=== PATIENT | female | born 1990 | race Caucasian/White ===

== ENCOUNTER 2017-08-30 09:53 | Inpatient (IN) | payer MEDICAID ==
[2017-08-30 11:53] LABS: ADD MAN DIFF? NO
[2017-08-30 11:56] LABS: WHITE BLOOD COUNT 9.9 10^3/ul (4.8-10.8)
[2017-08-30 11:56] LABS: BASOPHILS % 0.3 % (0.0-2.0); EOSINOPHILS # 0.1 10^3/ul (0.0-0.5); EOSINOPHILS % 0.8 % (0.0-7.0); HEMATOCRIT 35.4 % (37.0-47.0); LYMPHOCYTES # 1.8 10^3/ul (0.8-2.9); LYMPHOCYTES % 17.7 % (15.0-51.0); MEAN CORPUSCULAR HEMOGLOBIN 29.9 pg (29.0-33.0); MEAN CORPUSCULAR HGB CONC 33.9 g/dl (32.0-37.0); MEAN CORPUSCULAR VOLUME 88.1 fl (82.0-101.0); MEAN PLATELET VOLUME 11.8 fl (7.4-10.4); MONOCYTE # 0.5 10^3/ul (0.3-0.9); MONOCYTES % 5.3 % (0.0-11.0); NEUTROPHIL # 7.4 10^3/ul (1.6-7.5); PLATELET COUNT 188 10^3/UL (140-415); RED BLOOD COUNT 4.02 10^6/ul (4.20-5.40); RED CELL DISTRIBUTION WIDTH 14.3 % (11.5-14.5)
[2017-08-30 12:00] LABS: ADD UMIC NO; UR ASCORBIC ACID NEGATIVE (NEGATIVE); UR BILIRUBIN (Dip) NEGATIVE (NEGATIVE); UR BLOOD (Dip) NEGATIVE (NEGATIVE); UR CLARITY CLEAR (CLEAR); UR COLOR YELLOW (YELLOW); UR GLUCOSE (Dip) NEGATIVE (NEGATIVE); UR KETONES (Dip) NEGATIVE (NEGATIVE); UR LEUKOCYTE ESTERASE (Dip) NEGATIVE Leu/ul (NEGATIVE); UR NITRITE (Dip) NEGATIVE (NEGATIVE); UR SPECIFIC GRAVITY (Dip) 1.005 (1.003-1.030); UR TOTAL PROTEIN (Dip) NEGATIVE (NEGATIVE); UR UROBILINOGEN (Dip) NEGATIVE (NEGATIVE)
[2017-08-30] MEDS ORDERED: OXYTOCIN 30 UNITS/LR 500 ML IV (12:00)
[2017-08-30] MEDS ORDERED: LIDOCAINE 1% (MPF) 30 ML INJ INJ (12:00)
[2017-08-30] MEDS ORDERED: BUTORPHANOL 2 MG INJ IV (12:00)
[2017-08-30] MEDS ORDERED: METHYLERGONOVINE 0.2 MG INJ IM (12:00)
[2017-08-30] MEDS ORDERED: IBUPROFEN 600 MG TAB PO (12:00)
[2017-08-30 12:19] LABS: URIC ACID 4.7 mg/dl (3.1-7.9)
[2017-08-30 12:21] LABS: INR 0.88; PARTIAL THROMBOPLASTIN TIME 28.3 Sec (25.0-35.0); PT RATIO 0.9
[2017-08-30] MEDS: LABETALOL 100 MG TAB PO (12:30)
[2017-08-30 12:43] LABS: ALANINE AMINOTRANSFERASE 23 IU/L (13-69); ALBUMIN 3.9 g/dl (3.3-4.9); ALBUMIN/GLOBULIN RATIO 1.34; ALKALINE PHOSPHATASE 165 IU/L (42-121); ANION GAP 16 (8-16); ASPARTATE AMINO TRANSFERASE 19 IU/L (15-46); BILIRUBIN,INDIRECT 0.1 mg/dl (0-1.1); BILIRUBIN,TOTAL 0.1 mg/dl (0.2-1.3); BLOOD UREA NITROGEN 6 mg/dl (7-20); CALCIUM 9.3 mg/dl (8.4-10.2); CARBON DIOXIDE 21 mmol/L (21-31); CHLORIDE 107 mmol/L (97-110); CREATININE 0.43 mg/dl (0.44-1.00); GLUCOSE 110 mg/dl (70-220); SODIUM 140 mmol/L (135-144); TOTAL PROTEIN 6.8 g/dl (6.1-8.1)
[2017-08-30] MEDS: DINOPROSTONE 10 MG VAG SUPP VAG (12:56)
[2017-08-30] MEDS: LACTATED RINGER'S 1,000 ML IV ×2 (13:26→18:53)
[2017-08-30 15:46] LABS: HEPATITIS B SURFACE ANTIGEN NEGATIVE (NEGATIVE)
[2017-08-30] MEDS ORDERED: LACTATED RINGER'S 1,000 ML IV (19:51)
[2017-08-30 20:10] LABS: RAPID PLASMA REAGIN NONREACTIVE (NR)
[2017-08-30] MEDS: LABETALOL 200 MG TAB PO (21:10)
[2017-08-31] MEDS: LACTATED RINGER'S 1,000 ML IV ×3 (03:14→20:58)
[2017-08-31] MEDS: LABETALOL 200 MG TAB PO ×2 (09:13→20:59)
[2017-08-31] MEDS: DINOPROSTONE 10 MG VAG SUPP VAG (17:27)
[2017-08-31] MEDS: OXYTOCIN 30 UNITS/LR 500 ML IV (19:32)
[2017-09-01] MEDS: LACTATED RINGER'S 1,000 ML IV ×3 (05:15→21:23)
[2017-09-01] MEDS: LABETALOL 200 MG TAB PO ×2 (08:54→21:51)
[2017-09-01] MEDS ORDERED: FENTAnyl 2MCG/ML-ROPIV 0.2% 100 ML (16:12)
[2017-09-01] MEDS: OXYTOCIN 30 UNITS/LR 500 ML IV (18:19)
[2017-09-02] MEDS ORDERED: FENTAnyl 2MCG/ML-ROPIV 0.2% 100 ML (00:59)
[2017-09-02] MEDS ORDERED: ACETAMINOPHEN 325 MG TAB PO (02:00)
[2017-09-02] MEDS: LACTATED RINGER'S 1,000 ML IV (02:39)
[2017-09-02] MEDS ORDERED: MINERAL OIL LIGHT 10 ML VIAL (05:00)
[2017-09-02] MEDS ORDERED: CEFAZOLIN 2 GM/50 ML (PMX) 50 ML IVPB (06:32)
[2017-09-02] MEDS: CEFAZOLIN 2 GM/50 ML (PMX) 50 ML IVPB (06:35)
[2017-09-02] MEDS ORDERED: CLINDAMYCIN 900 MG/D5W (PMX) 50 ML IVPB (06:46)
[2017-09-02] MEDS: CLINDAMYCIN 900 MG/D5W (PMX) 50 ML IVPB (06:50)
[2017-09-02 07:22] LABS: ADD MAN DIFF? NO
[2017-09-02 07:25] LABS: WHITE BLOOD COUNT 18.4 10^3/ul (4.8-10.8)
[2017-09-02 07:25] LABS: BASOPHIL # 0.1 10^3/ul (0.0-0.1); BASOPHILS % 0.3 % (0.0-2.0); EOSINOPHILS % 0.1 % (0.0-7.0); HEMATOCRIT 29.6 % (37.0-47.0); HEMOGLOBIN 10.1 g/dl (12.0-16.0); LYMPHOCYTES # 0.8 10^3/ul (0.8-2.9); LYMPHOCYTES % 4.2 % (15.0-51.0); MEAN CORPUSCULAR HEMOGLOBIN 30.4 pg (29.0-33.0); MEAN CORPUSCULAR HGB CONC 34.1 g/dl (32.0-37.0); MEAN CORPUSCULAR VOLUME 89.2 fl (82.0-101.0); MEAN PLATELET VOLUME 11.6 fl (7.4-10.4); MONOCYTE # 1.4 10^3/ul (0.3-0.9); MONOCYTES % 7.7 % (0.0-11.0); NEUTROPHIL # 16.1 10^3/ul (1.6-7.5); NEUTROPHILS % 87.2 % (39.0-77.0); PLATELET COUNT 172 10^3/UL (140-415); RED BLOOD COUNT 3.32 10^6/ul (4.20-5.40); RED CELL DISTRIBUTION WIDTH 14.2 % (11.5-14.5)
[2017-09-02] MEDS: OXYTOCIN 30 UNITS/LR 500 ML IV ×3 (07:45→14:33)
[2017-09-02] MEDS: CARBOPROST 250 MCG INJ IM (07:49)
[2017-09-02] MEDS: MISOPROSTOL 200 MCG TAB PR (07:52)
[2017-09-02] MEDS ORDERED: HYDROmorphONE 0.5 MG/0.5 ML SYG IV ×2 (08:30)
[2017-09-02] MEDS ORDERED: ONDANSETRON 4 MG INJ IV ×2 (08:30→13:00)
[2017-09-02] MEDS ORDERED: FENTAnyl 2MCG/ML-ROPIV 0.2% 100 ML BAG EPI (08:30)
[2017-09-02] MEDS ORDERED: DIPHENHYDRAMINE 50 MG INJ IV (08:30)
[2017-09-02] MEDS ORDERED: NALOXONE (0.4 MG/ML) INJ IV (08:30)
[2017-09-02] MEDS ORDERED: KETOROLAC 30 MG INJ IV (08:30)
[2017-09-02] MEDS: LABETALOL 200 MG TAB PO ×3 (09:00→21:30)
[2017-09-02] MEDS ORDERED: MISOPROSTOL 200 MCG TAB PR (13:00)
[2017-09-02] MEDS ORDERED: CARBOPROST 250 MCG INJ IM (13:00)
[2017-09-02] MEDS ORDERED: ZOLPIDEM 5 MG TAB PO (13:00)
[2017-09-02] MEDS ORDERED: HYDROCODONE/APAP (5/325) TAB PO (13:00)
[2017-09-02] MEDS ORDERED: OXYTOCIN 30 UNITS/LR 500 ML IV (13:00)
[2017-09-02] MEDS: IBUPROFEN 600 MG TAB PO ×3 (13:24→23:34)
[2017-09-02] MEDS: CEFAZOLIN 2 GM/50 ML (PMX) 50 ML IV ×2 (13:25→21:29)
[2017-09-02 14:26] LABS: ADD MAN DIFF? NO
[2017-09-02 14:29] LABS: ABNORMAL IP MESSAGE 1; BASOPHILS % 0.2 % (0.0-2.0); HEMATOCRIT 25.9 % (37.0-47.0); HEMOGLOBIN 8.8 g/dl (12.0-16.0); LYMPHOCYTES # 1.1 10^3/ul (0.8-2.9); LYMPHOCYTES % 6.3 % (15.0-51.0); MEAN CORPUSCULAR HEMOGLOBIN 30.1 pg (29.0-33.0); MEAN CORPUSCULAR VOLUME 88.7 fl (82.0-101.0); MEAN PLATELET VOLUME 11.4 fl (7.4-10.4); MONOCYTE # 1.5 10^3/ul (0.3-0.9); MONOCYTES % 8.4 % (0.0-11.0); NEUTROPHIL # 15.3 10^3/ul (1.6-7.5); NEUTROPHILS % 84.7 % (39.0-77.0); PLATELET COUNT 165 10^3/UL (140-415); RED BLOOD COUNT 2.92 10^6/ul (4.20-5.40); RED CELL DISTRIBUTION WIDTH 14.3 % (11.5-14.5)
[2017-09-02 14:29] LABS: WHITE BLOOD COUNT 18.1 10^3/ul (4.8-10.8)
[2017-09-02 14:31] LABS: POSITIVE DIFF @See below
[2017-09-02] MEDS: CLINDAMYCIN 900 MG/D5W (PMX) 50 ML IV ×2 (14:35→22:23)
[2017-09-02] MEDS ORDERED: CEPHALEXIN 500 MG CAP PO (18:00)
[2017-09-02] MEDS: SENNA/DOCUSATE NA (8.6MG/50MG) TAB PO ×2 (18:15→21:29)
[2017-09-02] MEDS: WITCH HAZEL/GLYCERIN PAD PR (18:37)
[2017-09-02] MEDS: LANOLIN 7 GM TUBE TOP (18:38)
[2017-09-02] MEDS: BENZOCAINE 20% 56 ML SPRAY TOP (18:38)
[2017-09-02] MEDS: HYDROCODONE/APAP (5/325) TAB PO (21:29)
[2017-09-03] MEDS: IBUPROFEN 600 MG TAB PO ×3 (05:40→17:46)
[2017-09-03] MEDS: CEFAZOLIN 2 GM/50 ML (PMX) 50 ML IV (05:41)
[2017-09-03] MEDS: CLINDAMYCIN 900 MG/D5W (PMX) 50 ML IV (06:12)
[2017-09-03 08:07] LABS: ADD MAN DIFF? NO
[2017-09-03 08:15] LABS: WHITE BLOOD COUNT 13.3 10^3/ul (4.8-10.8)
[2017-09-03 08:15] LABS: BASOPHILS % 0.2 % (0.0-2.0); EOSINOPHILS # 0.1 10^3/ul (0.0-0.5); EOSINOPHILS % 0.6 % (0.0-7.0); HEMATOCRIT 20.8 % (37.0-47.0); LYMPHOCYTES # 1.6 10^3/ul (0.8-2.9); LYMPHOCYTES % 11.7 % (15.0-51.0); MEAN CORPUSCULAR HEMOGLOBIN 29.8 pg (29.0-33.0); MEAN CORPUSCULAR HGB CONC 33.7 g/dl (32.0-37.0); MEAN CORPUSCULAR VOLUME 88.5 fl (82.0-101.0); MONOCYTE # 1.1 10^3/ul (0.3-0.9); MONOCYTES % 8.6 % (0.0-11.0); NEUTROPHIL # 10.4 10^3/ul (1.6-7.5); NEUTROPHILS % 78.1 % (39.0-77.0); PLATELET COUNT 135 10^3/UL (140-415); RED BLOOD COUNT 2.35 10^6/ul (4.20-5.40); RED CELL DISTRIBUTION WIDTH 14.3 % (11.5-14.5)
[2017-09-03 08:17] LABS: POSITIVE DIFF @See below
[2017-09-03] MEDS: LABETALOL 200 MG TAB PO ×2 (09:23→21:04)
[2017-09-03] MEDS: SENNA/DOCUSATE NA (8.6MG/50MG) TAB PO ×2 (09:23→21:03)
[2017-09-03] MEDS: CLINDAMYCIN 300 MG CAP PO ×2 (13:13→17:46)
[2017-09-03] MEDS: CEPHALEXIN 500 MG CAP PO (17:47)
[2017-09-03] MEDS: FERROUS GLUCONATE (EC) 325 MG TAB PO (21:03)
[2017-09-04] MEDS: CEPHALEXIN 500 MG CAP PO ×4 (01:02→17:33)
[2017-09-04] MEDS: CLINDAMYCIN 300 MG CAP PO ×4 (01:02→17:32)
[2017-09-04] MEDS: IBUPROFEN 600 MG TAB PO ×4 (01:02→17:32)
[2017-09-04] MEDS: WITCH HAZEL/GLYCERIN PAD PR (01:03)
[2017-09-04] MEDS: BENZOCAINE 20% 56 ML SPRAY TOP (01:03)
[2017-09-04] MEDS: LABETALOL 200 MG TAB PO (08:11)
[2017-09-04] MEDS: SENNA/DOCUSATE NA (8.6MG/50MG) TAB PO (08:12)
[2017-09-04] MEDS: FERROUS GLUCONATE (EC) 325 MG TAB PO (08:12)
[2017-09-04] MEDS: HYDROCODONE/APAP (5/325) TAB PO (08:12)
[2017-09-04 08:47] LABS: ADD MAN DIFF? NO
[2017-09-04 08:52] LABS: ABNORMAL IP MESSAGE 1; BASOPHILS % 0.3 % (0.0-2.0); EOSINOPHILS # 0.2 10^3/ul (0.0-0.5); EOSINOPHILS % 1.9 % (0.0-7.0); HEMATOCRIT 20.6 % (37.0-47.0); LYMPHOCYTES # 1.6 10^3/ul (0.8-2.9); LYMPHOCYTES % 15.3 % (15.0-51.0); MEAN CORPUSCULAR HEMOGLOBIN 29.3 pg (29.0-33.0); MEAN CORPUSCULAR HGB CONC 32.5 g/dl (32.0-37.0); MEAN PLATELET VOLUME 11.8 fl (7.4-10.4); MONOCYTE # 0.8 10^3/ul (0.3-0.9); MONOCYTES % 7.7 % (0.0-11.0); NEUTROPHIL # 7.6 10^3/ul (1.6-7.5); NEUTROPHILS % 73.5 % (39.0-77.0); PLATELET COUNT 160 10^3/UL (140-415); RED BLOOD COUNT 2.29 10^6/ul (4.20-5.40); RED CELL DISTRIBUTION WIDTH 14.2 % (11.5-14.5)
[2017-09-04 08:52] LABS: WHITE BLOOD COUNT 10.4 10^3/ul (4.8-10.8)
[2017-09-04] MEDS: DIPHTH/TET/ACEL PERTUSS (ADULT) 0.5 ML VIAL IM* (09:00)
[2017-09-04 09:01] LABS: HEMOGLOBIN 6.7 g/dl (12.0-16.0); POSITIVE DIFF @See below
== END 2017-09-04 18:35 | disposition home or self-care (01) | DRG 768 ==
LOC: PP1 09-02 18:09 → L-D 09:53
PROC: 3E0P7VZ Introduction of Hormone into Female Reproductive, Via Natural or Artificial Opening (ICD-10-PCS; 2017-08-30 10:00)
DX: O13.4 Gestational [pregnancy-induced] hypertension without significant proteinuria, complicating childbirth (principal); O72.1 Other immediate postpartum hemorrhage; O70.1 Second degree perineal laceration during delivery; O71.82 Other specified trauma to perineum and vulva; Z37.0 Single live birth; Z3A.38 38 weeks gestation of pregnancy
CPT/HCPCS: 62319; 76815; 80053; 81003; 84560; 85025; 85610; 85730; 86592; 86850; 86900; 86901; 86920; 87340; 90715; 99464

== ENCOUNTER 2018-02-10 19:21 | Emergency (ER) | payer MEDICAID ==
[2018-02-10] MEDS: LIDOCAINE 1% (MDV) 10 ML INJ INJ (20:17)
== END 2018-02-10 20:45 | disposition home or self-care (01) ==
LOC: FTE 19:21
DX: L05.01 Pilonidal cyst with abscess (principal)
CPT/HCPCS: 10080; 99283-25

== ENCOUNTER 2018-06-01 17:10 | Emergency (ER) | payer MEDICAID ==
[2018-06-01] MEDS: LIDOCAINE 1% (MDV) 20 ML INJ SC (20:32)
== END 2018-06-01 20:33 | disposition home or self-care (01) ==
LOC: FTE 17:10
DX: L02.31 Cutaneous abscess of buttock (principal)
CPT/HCPCS: 10060; 99283-25

== ENCOUNTER 2018-06-02 15:55 | Emergency (ER) | payer MEDICAID | END 2018-06-02 17:32 | disposition home or self-care (01) | LOC: FTE 15:55 | DX: Z48.01 Encounter for change or removal of surgical wound dressing (principal) | CPT/HCPCS: 99281; Z7502 ==

== ENCOUNTER 2019-04-28 17:05 | Emergency (ER) | payer MEDICAID ==
[2019-04-28] MEDS: LIDOCAINE 1% (MPF) 5 ML VIAL INFIL (19:42)
[2019-04-28] MEDS: LIDOCAINE 4% CR TOP (19:42)
== END 2019-04-28 19:53 | disposition home or self-care (01) ==
LOC: FTE 17:05
DX: K61.0 Anal abscess (principal); I10 Essential (primary) hypertension
CPT/HCPCS: 46040; 99283-25